=== PATIENT | female | born 1960 | race Caucasian/White ===

== ENCOUNTER 2019-08-21 21:51 | Emergency (ER) | payer BC ==
[2019-08-21] MEDS ORDERED: Famotidine 20 MG/2 ML SDV IVPUSH ONE (21:54)
[2019-08-21] MEDS ORDERED: methylPREDNISolone Sodium Succinate 125 MG/2 ML SDV IVPUSH ONE (21:54)
--- NOTE | 2019-08-21 22:42 | EDM.PDOC ---
ED HPI GENERAL MEDICAL PROBLEM - General Chief Complaint: Allergic Reaction Stated Complaint: ALLERGIC REACTION Time Seen by Provider: 08/21/19 22:37 Source of Information: Reports: Patient - History of Present Illness INITIAL COMMENTS - FREE TEXT/NARRATIVE: HISTORY AND PHYSICAL: History of present illness: [Patient presents with allergic reaction to brussels sprouts, she has several known sensitivities this is the first time she has reactive to a Rene sprout no fever nausea vomiting chills sweats but has some cheek and throat swelling sensation not visible swelling sensation of swelling no stridor or difficulty breathing arrives by private vehicle in no distress Had taken Benadryl at home 50 mg by mouth and then had a [address] him to the ER I did provide Solu-Medrol and famotidine she is doing quite well aft extended stay in the ER for observation and is symptomatically resolved at this timeer a Review of systems: As per history of present illness and below otherwise all systems reviewed and negative. Past medical history: As per history of present illness and as reviewed below otherwise noncontributory. Surgical history: As per history of present illness and as reviewed below otherwise noncontributory. Social history: No reported history of drug or alcohol abuse. Family history: As per history of present illness and as reviewed below otherwise noncontributory. Physical exam: HEENT: Atraumatic, normocephalic, pupils reactive, negative for conjunctival pallor or scleral icterus, mucous membranes moist, throat clear, neck supple, nontender, trachea midline. swelling tongue swelling or oral pharyngeal edema no stridor Lungs: Clear to auscultation, breath sounds equal bilaterally, chest nontender. Heart: S1S2, regular, negative for clicks, rubs, or JVD. Abdomen: Soft, nondistended, nontender. Negative for masses or hepatosplenomegaly. Negative for costovertebral tenderness. Pelvis: Stable nontender. Genitourinary: Deferred. Rectal: Deferred. Extremities: Atraumatic, negative for cords or calf pain. Neurovascular unremarkable. Neuro: Awake, alert, oriented. Cranial nerves II through XII unremarkable. Cerebellum unremarkable. Motor and sensory unremarkable throughout. Exam nonfocal. Diagnostics: clinical Therapeutics: Famotidine Solu-Medrol benedryl-cannot home Avoid brussels sprouts Impression: [ allergic reaction ]-resolved Definitive disposition and diagnosis as appropriate pending reevaluation and review of above. - Related Data Allergies Allergy/AdvReac Type Severity Reaction Status Date / Time cephalexin Allergy Rash Verified 07/08/14 14:30 doxycycline Allergy Cannot Verified 07/08/14 14:30 Remember Sulfa (Sulfonamide Allergy Rash Verified 07/08/14 14:30 Antibiotics) ED ROS ALLERGIC REACTION - Review of Systems Review Of Systems: See Below ED EXAM GENERAL NO PERIP PULSE - Physical Exam Exam: See Below Course - Orders/Labs/Meds Meds: Medications Discontinued Medications Generic Name Dose Route Start Last Admin Trade Name Freq PRN Reason Stop Dose Admin Famotidine 20 mg 08/21/19 21:54 08/21/19 22:04 Pepcid IVPUSH 08/21/19 21:55 20 mg ONETIME ONE Administration Methylprednisolone Sodium Succinate 125 mg 08/21/19 21:54 08/21/19 22:04 Solu-Medrol IVPUSH 08/21/19 21:55 125 mg ONETIME ONE Administration Departure - Departure Time of Disposition: 22:40 Disposition: Home, Self-Care 01 Condition: Good Clinical Impression: Allergic reaction - Discharge Information Additional Instructions: Prednisone 20 mg by mouth daily 5 days Benadryl 50 mg every 4 hours as needed Zantac 150 mg by mouth twice a day may benefit Prescription for EpiPen The above medications can be takeconjunction with each other primary care [facility] [address] [place] [address] The following information is given to patients seen in the emergency department who are being discharged to home. This information is to outline your options for follow-up care. We provide all patients seen in our emergency department with a follow-up referral. The need for follow-up, as well as the timing and circumstances, are variable depending upon the specifics of your emergency department visit. If you don't have a primary care physician on staff, we will provide you with a referral. We always advise you to contact your personal physician following an emergency department visit to inform them of the circumstance of the visit and for follow-up with them and/or the need for any referrals to a consulting specialist. The emergency department will also refer you to a specialist when appropriate. This referral assures that you have the opportunity for follow-up care with a specialist. All of these measure are taken in an effort to provide you with optimal care, which includes your follow-up. Under all circumstances we always encourage you to contact your private physician who remains a resource for coordinating your care. When calling for follow-up care, please make the office aware that this follow-up is from your recent emergency room visit. If for any reason you are refused follow-up, please contact the [facility] emergency department at and asked to speak to the emergency department charge nurse.
== END 2019-08-21 23:00 | disposition home or self-care (01) ==
LOC: MW.ED 21:51
DX: T78.40XA Allergy, unspecified, initial encounter (principal); Z88.1 Allergy status to other antibiotic agents; Z88.2 Allergy status to sulfonamides
CPT/HCPCS: 96374; 96375; 99283; J2930; S0028; 99282; J3490

== ENCOUNTER 2022-03-17 09:38 | Emergency (ER) | payer BC | END 2022-03-17 10:59 | disposition home or self-care (01) | LOC: MW.ED 09:38 | DX: U07.1 COVID-19 (principal); I10 Essential (primary) hypertension; M10.9 Gout, unspecified; Z79.899 Other long term (current) drug therapy; Z88.1 Allergy status to other antibiotic agents; Z88.2 Allergy status to sulfonamides; Z91.048 Other nonmedicinal substance allergy status; Z86.16 Personal history of COVID-19 | CPT/HCPCS: 99283; U0002 ==